=== PATIENT | male | born 1950 | race Caucasian/White ===

== ENCOUNTER 2020-06-21 06:08 | Day surgery (SDC) | payer MEDICARE ==
[2020-06-12 09:26] VITALS: BMI 35.4
[~2020-06-21 06:08] MED LIST: ALPRAZolam 0.25 MG TAB PO PRN; ALPRAZolam 0.5 MG TAB PO PRN; ASPIRIN 325 MG TAB PO STA; ATORVASTATIN 80 MG TAB PO STA; HEPARIN SODIUM,PORCINE 10,000 UNIT in SODIUM CHLORIDE 0.9% 1,000 ML IRRIGATION PRN; HEPARIN SODIUM,PORCINE 2,500 UNIT in SODIUM CHLORIDE 0.9% 250 ML IRRIGATION PRN; NITROGLYCERIN SL TABS 0.4 MG TAB SUBLINGUAL PRN; SODIUM CHLORIDE 0.9% 1,000 ML in EMPTY BAG 1 BAG IV ONE
[2020-06-21] MEDS ORDERED: SODIUM CHLORIDE 0.9% 1,000 ML IV ONE (06:46)
[2020-06-21 07:00] LABS: Glucose,Whole Blood 156 mg/dL (75-99)
[2020-06-21 07:03] LABS: Basophils # (A) 0.1 k/uL (0-0.2); Basophils % (A) 1 %; Eosinophils # (A) 0.3 k/uL (0-0.7); Eosinophils % (A) 5 %; HCT 41.5 % (39.0-53.0); HGB 14.4 gm/dL (13.0-17.5); Lymphocytes # (A) 1.5 k/uL (1.0-4.8); Lymphocytes % (A) 21 %; MCH 32.5 pg (25.0-35.0); MCHC 34.8 g/dL (31.0-37.0); MCV 93.5 fL (80.0-100.0); Mean Platelet Volume 7.1; Monocytes # (A) 0.4 k/uL (0-1.0); Monocytes % (A) 6 %; Neutrophils # (A) 4.6 k/uL (1.3-7.7); Neutrophils % (A) 66 %; Platelet Count 201 k/uL (150-450); RBC 4.44 m/uL (4.30-5.90); RDW 12.6 % (11.5-15.5); WBC 6.9 k/uL (3.8-10.6)
[2020-06-21 07:17] LABS: Calcium 8.9 mg/dL (8.4-10.2); Potassium 4.1 mmol/L (3.5-5.1)
[2020-06-21] MEDS ORDERED: VERAPAMIL 2.5 MG/ML 2 ML AMP ONE (07:41)
[2020-06-21] MEDS ORDERED: LIDOCAINE 1% INJ 10MG/ML (20 ML MDV) ONE (07:41)
[2020-06-21] MEDS ORDERED: HEPARIN SODIUM 1,000 UN/ML (10ML VL) ONE (07:41)
[2020-06-21] MEDS ORDERED: MIDAZOLAM 2 MG/2 ML VIAL IV ONE (07:59)
[2020-06-21] MEDS: MIDAZOLAM 2 MG/2 ML VIAL IV ONE ×2 (08:11→08:16)
[2020-06-21] MEDS ORDERED: fentaNYL (PF) 50 MCG/ML 2 ML AMP ONE (08:14)
[2020-06-21] MEDS ORDERED: LIDOCAINE 1% INJ 10MG/ML (20 ML MDV) SQ ONE (08:15)
[2020-06-21] MEDS: fentaNYL (PF) 50 MCG/ML 2 ML AMP IV ONE ×2 (08:16→09:12)
[2020-06-21] MEDS ORDERED: BIVALIRUDIN BOLUS 250 MG/50 ML IV ONE (08:42)
[2020-06-21] MEDS ORDERED: BIVALIRUDIN 250 MG in SODIUM CHLORIDE 0.9% 50 ML IV ONE (08:44)
[2020-06-21] MEDS ORDERED: IOPAMIDOL-370 125ML BTL INJ ONE (08:46)
[2020-06-21] MEDS: NITROGLYCERIN 1000MCG/10ML SYRINGE INTRACORON ONE ×2 (08:59→09:00)
[2020-06-21] MEDS ORDERED: CLOPIDOGREL 75 MG TAB ONE (09:02)
[2020-06-21] MEDS ORDERED: CLOPIDOGREL 75 MG TAB PO ONE (09:05)
[2020-06-21] MEDS ORDERED: IOPAMIDOL-370 100ML BTL INJ ONE (09:06)
[2020-06-21] MEDS ORDERED: MAG HYDROX/AL HYDROX/SIMETH 30 ML CUP PO PRN (09:12)
[2020-06-21] MEDS ORDERED: RX INFO: IV CONTRAST WAS GIVEN 1 EACH MISC MISCELLANE PRN (09:12)
[2020-06-21] MEDS ORDERED: ZOLPIDEM 5 MG TAB PO PRN (09:12)
[2020-06-21] MEDS ORDERED: ATROPINE SULFATE 0.1 MG/ML 10ML SYRINGE IV PRN (09:12)
[2020-06-21] MEDS ORDERED: NITROGLYCERIN SL TABS 0.4 MG TAB SUBLINGUAL PRN (09:12)
[2020-06-21] MEDS ORDERED: SODIUM CHLORIDE 0.9% 1,000 ML IV SCH (09:15)
[2020-06-21 09:25] LABS: Glucose,Whole Blood 129 mg/dL (75-99)
--- NOTE | 2020-06-21 09:44 | CC ---
CARDIAC CATHETERIZATION REPORT CARDIAC CATHETERIZATION AND PERCUTANEOUS CORONARY INTERVENTION: DATE OF SERVICE: 06/21/2020 PERFORMING PHYSICIAN: Richard Carrizales MD. PROCEDURE PERFORMED: 1. Selective left and right coronary angiogram. 2. HOFF to LAD angiogram. 3. SVG to left circumflex angiogram. 4. SVG to RCA angiogram. 5. Successful stenting of the ramus intermedius coronary artery using 2.75 x 18 mm Xience VIDAL with an excellent angiographic result and reduction of stenosis from 80% to 0%. 6. Right common femoral artery angiogram. INDICATION: This is a 70-year-old gentleman with coronary artery disease and prior coronary artery bypass grafting where he received HOFF to LAD and SVG to ramus intermedius as well as SVG to RCA, was experiencing symptoms of shortness of breath with exertion concerning for severe CAD and angina. He underwent myocardial perfusion imaging stress test and that revealed reversible defect concerning for ischemia. Because of that, a heart catheterization was advised. APPROACH: Right common femoral artery. COMPLICATION: None. LEVEL OF SEDATION: Moderate with sedation length of 30 minutes. PROCEDURE DESCRIPTION: After obtaining an informed consent, the patient was brought to cardiac porcelain enamel laborer. The right common femoral artery was cannulated using micropuncture technique, the micropuncture wire passed easily then I placed a 6-Chadian sheath at the right common femoral artery. I did selective left and right coronary angiogram with JL4 and JR4 catheters. The HOFF to LAD angiogram was performed using the JR4 catheter. The SVG to ramus was performed using LCB. The SVG to RCA was performed using a multi-purpose catheter. After that I did left heart catheterization. After that I did intervene on the ramus intermedius. Please see a separate paragraph for that. SELECTIVE CORONARY ANGIOGRAM: 1. The left main is calcified with mild to moderate disease. It bifurcates into left circumflex and ramus intermedius and left anterior descending artery. 2. The left circumflex: The ostial/proximal left circumflex has a lesion appeared to be in the range of 80% to 90%. 3. The ramus intermedius has a lesion appeared to be in the range of 80%. 4. The LAD is subtotally occluded in the midportion. CORONARY BYPASSES ANGIOGRAM: 1. The HOFF to LAD is patent. 2. The SVG to ramus is occluded. 3. The SVG to RCA is occluded. PCI OF THE RAMUS INTERMEDIUS: Anticoagulation was initiated using Angiomax. After that, I did engage the left main using JL4 guide. I did wire the LAD using a Whisper wire and I did wire the ramus using a run-through wire as well. I did wire the LAD for anchoring purpose because the guide was not well seated in the left main. Balloon angioplasty was achieved using 2.0 x 12 mm balloon. I deployed 2.75 x 18 mm Xience drug-eluting stent where the stent was positioned under fluoroscopy guidance and deployed under 16 atmospheres for 20 seconds with the following angiogram showing excellent angiographic results and the procedure was completed without any complication. HEMODYNAMICS: The LVEDP was about 20 mmHg without significant gradient across the aortic valve. CONCLUSION: 1. Severe triple-vessel coronary artery disease. 2. Patent HOFF to LAD. 3. Occluded SVG to ramus intermedius. 4. Occluded SVG to RCA. 5. Successful stenting of the ramus intermedius as described above. POSTPROCEDURE MANAGEMENT: 1. Dual anti-platelet therapy. 2. Risk factor modifications. 3. Consider PCI of the left circumflex and possibly the RCA if the patient continues to be symptomatic. MMODL / IJN: [id number] /
[2020-06-21] MEDS ORDERED: hydrALAZINE HCL 20 MG/ML 1 ML VIAL IVP STA (17:06)
[2020-06-21] MEDS: DOXAZOSIN 4 MG TAB PO SCH (17:30)
[2020-06-21] MEDS: VERAPAMIL SR 180 MG TABLET.ER PO SCH (17:31)
[2020-06-21] MEDS: glipiZIDE 10 MG TAB PO SCH (17:31)
[2020-06-21] MEDS ORDERED: amLODIPine 5 MG TAB PO STA (18:42)
[2020-06-21] MEDS ORDERED: amLODIPine 5 MG TAB ONE (18:42)
[2020-06-21 20:53] LABS: Glucose,Whole Blood 174 mg/dL (75-99)
[2020-06-21] MEDS ORDERED: INSULIN DETEMIR (LEVEMIR) 100 UNIT/ML SYR SQ SCH (21:00)
[2020-06-21] MEDS ORDERED: ATORVASTATIN 10 MG TAB PO SCH (21:00)
[2020-06-22 04:51] VITALS: PULSE 73; TEMP 98.1
[2020-06-22] MEDS: glipiZIDE 10 MG TAB PO SCH (06:25)
[2020-06-22 06:35] LABS: Glucose,Whole Blood 143 mg/dL (75-99)
[2020-06-22] MEDS ORDERED: ASPIRIN 81 MG PO SCH (09:00)
[2020-06-22] MEDS ORDERED: FUROSEMIDE 40 MG TAB PO SCH (09:00)
[2020-06-22] MEDS ORDERED: lisinopriL 20 MG TAB PO SCH (09:00)
[2020-06-22] MEDS ORDERED: atenoloL 50 MG TAB PO SCH (09:00)
[2020-06-22 09:03] LABS: Basophils # (A) 0.1 k/uL (0-0.2); Basophils % (A) 1 %; Eosinophils # (A) 0.2 k/uL (0-0.7); Eosinophils % (A) 3 %; HCT 39.9 % (39.0-53.0); HGB 13.7 gm/dL (13.0-17.5); Lymphocytes # (A) 1.1 k/uL (1.0-4.8); Lymphocytes % (A) 15 %; MCH 32.4 pg (25.0-35.0); MCHC 34.3 g/dL (31.0-37.0); MCV 94.5 fL (80.0-100.0); Mean Platelet Volume 7.2; Monocytes # (A) 0.4 k/uL (0-1.0); Monocytes % (A) 5 %; Neutrophils # (A) 5.6 k/uL (1.3-7.7); Neutrophils % (A) 75 %; Platelet Count 170 k/uL (150-450); RBC 4.22 m/uL (4.30-5.90); RDW 12.7 % (11.5-15.5); WBC 7.4 k/uL (3.8-10.6)
[2020-06-22] MEDS: VERAPAMIL SR 180 MG TABLET.ER PO SCH (09:03)
[2020-06-22] MEDS: DOXAZOSIN 4 MG TAB PO SCH (09:04)
[2020-06-22 09:13] LABS: African American GFR (CKD) >90 (>60 ml/min/1.73 sqM); Anion Gap 3 mmol/L; Blood Urea Nitrogen 15 mg/dL (9-20); Calcium 8.6 mg/dL (8.4-10.2); Carbon Dioxide 28 mmol/L (22-30); Chloride 108 mmol/L (98-107); Glucose 124 mg/dL (74-99); Non-African American GFR(CKD) >90 (>60 ml/min/1.73 sqM); Potassium 3.7 mmol/L (3.5-5.1); Sodium 139 mmol/L (137-145)
[2020-06-22 10:27] VITALS: BP 163/77; RESP 18
[2020-06-22 12:35] LABS: Glucose,Whole Blood 82 mg/dL (75-99)
== END 2020-06-22 12:44 | disposition home or self-care (01) ==
LOC: CATHCVL 06:08 → 3SCARD 09:05 → CATHCVL 06-22 12:44
PROVIDERS: ATTEND Internal Medicine Interventional Cardiology
DX: I25.110 Atherosclerotic heart disease of native coronary artery with unstable angina pectoris (principal); I25.84 Coronary atherosclerosis due to calcified coronary lesion; I25.710 Atherosclerosis of autologous vein coronary artery bypass graft(s) with unstable angina pectoris; I10 Essential (primary) hypertension; I71.2 Thoracic aortic aneurysm, without rupture; I07.1 Rheumatic tricuspid insufficiency; E78.00 Pure hypercholesterolemia, unspecified; E78.5 Hyperlipidemia, unspecified; E11.9 Type 2 diabetes mellitus without complications; Z82.49 Family history of ischemic heart disease and other diseases of the circulatory system; Z79.82 Long term (current) use of aspirin; Z79.4 Long term (current) use of insulin; Z79.899 Other long term (current) drug therapy
CPT/HCPCS: 93459; 80048 ×2; 85025 ×2; C9600; C1760; C1769 ×5; C1887 ×2; C1725; C1894; C1874; J2250; J0360; J2001; J3010; J0583; Q9967 ×2

== ENCOUNTER → 2021-04-16 | Outpatient (CLI) | payer MEDICARE ==
--- NOTE | 2021-04-16 12:51 | US ---
EXAMINATION TYPE: US kidneys/renal and bladder DATE OF EXAM: 04/16/2021 COMPARISON: NONE CLINICAL HISTORY: R31.9 HEMATURIA. Pt states urinary frequency and urgency EXAM MEASUREMENTS: Right Kidney: 13.1 x 6.9 x 5.6 cm Left Kidney: 12.4 x 6.7 x 6.0 cm Right Kidney: No evidence of hydro, multicystic with largest cyst lower pole= 1.6 x 1.3 x 1.2 cm Left Kidney: No evidence of hydro, multicystic with largest cyst mid/medial= 4.0 x 3.9 x 5.1 cm Bladder: Possible bladder wall diverticula visualized at posterior wall Bilateral Jets seen: Yes There is no evidence for hydronephrosis in either kidney. A diffuse scattered small simple appearing thin-walled cysts bilaterally are present on images saved. The urinary bladder is not greatly distend ed. Bilateral ureteral jets are seen. IMPRESSION: Source of hematuria not identified. If symptoms persist further investigation with CT uro gram would be warranted.
== END | disposition home or self-care (01) ==
LOC: RADUSWWP 12:22
PROVIDERS: ATTEND Urology
DX: R31.9 Hematuria, unspecified (principal); R35.0 Frequency of micturition; R39.15 Urgency of urination
CPT/HCPCS: 76770

== ENCOUNTER 2022-05-08 05:50 | Day surgery (SDC) | payer MEDICARE ==
[2022-05-08] MEDS ORDERED: ATORVASTATIN 80 MG TAB PO STA (05:55)
[2022-05-08] MEDS ORDERED: ASPIRIN 325 MG TAB PO STA (05:55)
[2022-05-08] MEDS ORDERED: ALPRAZolam 0.5 MG TAB PO PRN (05:55)
[2022-05-08] MEDS ORDERED: HEPARIN SODIUM,PORCINE 2,500 UNIT in SODIUM CHLORIDE 0.9% 250 ML IRRIGATION PRN (05:55)
[2022-05-08] MEDS ORDERED: HEPARIN SODIUM,PORCINE 10,000 UNIT in SODIUM CHLORIDE 0.9% 1,000 ML IRRIGATION PRN (05:55)
[2022-05-08] MEDS ORDERED: NITROGLYCERIN SL TABS 0.4 MG TAB SUBLINGUAL PRN ×2 (05:55→08:32)
[2022-05-08] MEDS ORDERED: ALPRAZolam 0.25 MG TAB PO PRN (05:55)
[2022-05-08] MEDS ORDERED: SODIUM CHLORIDE 0.9% 1,000 ML IV ONE (06:10)
[2022-05-08 06:54] LABS: Basophils # (A) 0.1 k/uL (0-0.2); Basophils % (A) 1 %; Eosinophils # (A) 0.3 k/uL (0-0.7); Eosinophils % (A) 4 %; HCT 41.1 % (39.0-53.0); HGB 14.7 gm/dL (13.0-17.5); Lymphocytes # (A) 1.5 k/uL (1.0-4.8); Lymphocytes % (A) 19 %; MCH 33.2 pg (25.0-35.0); MCHC 35.8 g/dL (31.0-37.0); MCV 92.7 fL (80.0-100.0); Mean Platelet Volume 8.2; Monocytes # (A) 0.4 k/uL (0-1.0); Monocytes % (A) 6 %; Neutrophils # (A) 5.3 k/uL (1.3-7.7); Neutrophils % (A) 69 %; Platelet Count 190 k/uL (150-450); RBC 4.43 m/uL (4.30-5.90); WBC 7.6 k/uL (3.8-10.6)
[2022-05-08 07:03] LABS: Calcium 8.1 mg/dL (8.4-10.2); Potassium 3.7 mmol/L (3.5-5.1)
[2022-05-08] MEDS ORDERED: VERAPAMIL 2.5 MG/ML 2 ML AMP ONE (07:17)
[2022-05-08] MEDS ORDERED: MIDAZOLAM 2 MG/2 ML VIAL IV ONE ×4 (07:37→07:46)
[2022-05-08] MEDS ORDERED: LIDOCAINE 1% INJ 10MG/ML (30 ML VIAL-PF) SQ ONE (07:41)
[2022-05-08] MEDS ORDERED: HEPARIN SODIUM 1,000 UN/ML (10ML VL) ONE (08:01)
[2022-05-08] MEDS ORDERED: HEPARIN SODIUM 1,000 UN/ML (10ML VL) IV ONE (08:02)
[2022-05-08] MEDS ORDERED: HYDROmorphone 0.5 MG/0.5 ML SYRINGE IVP ONE (08:05)
[2022-05-08] MEDS ORDERED: IOPAMIDOL-370 100ML BTL INJ ONE ×2 (08:11→08:31)
[2022-05-08] MEDS ORDERED: NITROGLYCERIN 1000MCG/10ML SYRINGE INTRACORON ONE (08:25)
[2022-05-08] MEDS ORDERED: CLOPIDOGREL 75 MG TAB ONE (08:26)
[2022-05-08] MEDS ORDERED: CLOPIDOGREL 75 MG TAB PO ONE (08:28)
[2022-05-08] MEDS ORDERED: MAG HYDROX/AL HYDROX/SIMETH 30 ML CUP PO PRN (08:32)
[2022-05-08] MEDS ORDERED: ATROPINE SULFATE 0.1 MG/ML 10ML SYRINGE IV PRN (08:32)
[2022-05-08] MEDS ORDERED: ZOLPIDEM 5 MG TAB PO PRN (08:32)
[2022-05-08] MEDS ORDERED: RX INFO: IV CONTRAST WAS GIVEN 1 EACH MISC MISCELLANE PRN (08:32)
--- NOTE | 2022-05-08 08:38 | P.PCN ---
Date of Procedure: 05/08/22 Operative Findings: CARDIAC CATHETERIZATION AND PERCUTANEOUS CORONARY INTERVENTION PERFORMING PHYSICIAN: Richard Carrizales MD, [facility] PROCEDURE PERFORMED: 1. Selective right and left coronary angiogram 2. Left heart catheterization 3. Successful stenting of ostial LCx using 2.75 x 12 Xience VIDAL which with an excellent angiographic results 4. HOFF to LAD angiogram, SVG to LCx angiogram, and SVG to RCA angiogram, selective right common femoral artery angiogram INDICATION: This is a 72-year-old gentleman with CAD and prior revascularization was seen in the office as before intermittent episodes of chest discomfort and neck discomfort concerning for angina COMPLICATION: None APPROACH: Right common femoral are LEVEL OF SEDATION: Moderate with the sedation time off 55 minutes PROCEDURE DESCRIPTION: After obtaining an informed consent the patient was brought to the cardiac laboratory equipment installer. The right common femoral artery was cannulated using micropuncture technique, the micropuncture wire passed easily then I placed a 6-Emirati sheath at the right common femoral artery. I did selective right and left coronary angiogram using JR4 and JL L 4.5 catheters. I did also SVG to RCA and SVG to LCx and HOFF into LAD angiogram using JR4 catheter. Left heart catheterization was performed using the JR4 catheter which cross the aortic valve then I did pullback across the valve. After that I did intervene on the LCx these see the dictation. The procedure was completed without any complication SELECTIVE CORONARY ANGIOGRAM: The right coronary artery: Large caliber vessel and a dominant vessel. The RCA is chronically occluded. The SVG to RCA is occluded as well Left main: Left main has mild disease. Bifurcates into an LCx and LAD The left circumflex: Large caliber vessel. Its and on dominant vessel. The LCx proximally gives rise into a large OM branch which appeared to be stented and the stent is patent. The ostial LCx has a tight lesion appeared to be in the range of 99.9%. The SVG to LCx is occluded. The left anterior descending artery: Large caliber vessel. The LAD is occluded in the proximal to midportion. The HOFF to LAD is patent. HEMODYNAMICS: The LVEDP was 16 mmHg was no significant gradient across aortic valve PCI OF THE LCx: Anticoagulation was initiated using heparin with continuous ACT monitoring. Subsequently I did engage the left main using a CLS 4 guiding catheter. I did where the LCx using a whisper wire. Balloon angioplasty was achieved using initially 2.0 underwent 2.5 mm balloon. After that I did deploy 2.75 x 12 mm stent where the stent was positioned under fluoroscopy guidance and deployed under 20 ld for 20 seconds. The following angiogram showed good angiographic r esults and the procedure was completed without any complications CONCLUSION: Severe triple-vessel coronary artery disease Patent HOFF to LAD Occluded SVG to LCx Occluded SVG to RCA Patent stent in the first obtuse marginal branch Successful stenting of the ostial LCx Normal left-sided filling pressure POSTPROCEDURE MANAGEMENT: #1 dual antiplatelet therapy with dual antiplatelet therapy including aspirin and Plavix for at least 6 month and preferably twelve-month #2 aggressive cholesterol control #3 follow-up with the patient
[2022-05-08] MEDS ORDERED: atenoloL 50 MG TAB PO SCH (09:00)
[2022-05-08] MEDS ORDERED: SAW PALMETTO 160 MG PO SCH (09:00)
[2022-05-08 09:05] LABS: Glucose,Whole Blood 166 mg/dL (70-110)
[2022-05-08] MEDS: SODIUM CHLORIDE 0.9% 1,000 ML in EMPTY BAG 1 BAG IV SCH ×19 (11:27→16:07)
[2022-05-08] MEDS: DOXAZOSIN 4 MG TAB PO SCH ×2 (12:10→21:09)
[2022-05-08] MEDS: ASCORBIC ACID 500 MG TAB PO SCH (12:11)
[2022-05-08] MEDS: VERAPAMIL SR 180 MG TABLET.ER PO SCH ×2 (12:11→21:09)
[2022-05-08] MEDS: lisinopriL 20 MG TAB PO SCH (12:11)
[2022-05-08] MEDS: FUROSEMIDE 40 MG TAB PO SCH (12:11)
[2022-05-08] MEDS: INDOMETHACIN 25 MG CAP PO SCH (12:11)
[2022-05-08 12:39] LABS: Glucose,Whole Blood 212 mg/dL (70-110)
[2022-05-08 15:06] VITALS: BMI 36.6
[2022-05-08 17:34] LABS: Glucose,Whole Blood 219 mg/dL (70-110)
[2022-05-08] MEDS: glipiZIDE 10 MG TAB PO SCH (18:16)
[2022-05-08 19:30] VITALS: RESP 16
[2022-05-08 20:23] LABS: Glucose,Whole Blood 358 mg/dL (70-110)
[2022-05-08] MEDS ORDERED: INSULIN DETEMIR (LEVEMIR) 100 UNIT/ML SYR SQ SCH (21:00)
[2022-05-09 06:15] LABS: Glucose,Whole Blood 128 mg/dL (70-110)
[2022-05-09] MEDS: glipiZIDE 10 MG TAB PO SCH (06:16)
--- NOTE | 2022-05-09 08:01 | P.DS ---
Providers Attending physician: Richard Carrizales Consults: 05/08/22 08:32 Consult Physician Routine Consulting Provider: [facility] Consult Reason/Comments: Post Interventional Patient Do you want consulting provider notified?: Already Contacted Primary care physician: Ed Callaway [facility] Course: The patient is a pleasant 72-year-old gentleman with coronary artery disease with underwent yesterday successful stenting of the left circumflex coronary artery from right groin approach. He was seen this morning. He is asymptomatic and hemodynamically stable. The groin is soft and nontender with no bruises. The patient is going to be discharged home on dual antiplatelet therapy along with high intensity statin and I'll follow-up with the patient in a week in the office Plan - Discharge Summary Discharge Rx Participant: No New Discharge Prescriptions: Continue Aspirin 81 mg PO DAILY Insulin Glargine,Hum.rec.anlog [Lantus Solostar Pen] 50 unit SQ HS Lovastatin [Mevacor] 40 mg PO DAILY lisinopriL 20 mg PO DAILY Terazosin HCl 8 mg PO BID Furosemide [Lasix] 40 mg PO DAILY Verapamil HCl [Verapamil ER] 180 mg PO BID atenoloL [Tenormin] 50 mg PO DAILY Glipizide (Unknown Dose) 10 mg PO BID-W/MEALS Oxybutynin ER [Ditropan Xl] 10 mg PO DAILY Ascorbic Acid [Vitamin C] 500 mg PO DAILY Saw [place] 160 mg PO DAILY Clopidogrel [Plavix] 75 mg PO DAILY Indomethacin [Indocin] 50 mg PO DAILY Discontinued metFORMIN HCL [Glucophage] 1,000 mg PO DAILY Discharge Medication List Aspirin 81 mg PO DAILY 06/12/20 [History] Furosemide [Lasix] 40 mg PO DAILY 06/12/20 [History] Insulin Glargine,Hum.rec.anlog [Lantus Solostar Pen] 50 unit SQ HS 06/12/20 [History] Lovastatin [Mevacor] 40 mg PO DAILY 06/12/20 [History] Terazosin HCl 8 mg PO BID 06/12/20 [History] Verapamil HCl [Verapamil ER] 180 mg PO BID 06/12/20 [History] atenoloL [Tenormin] 50 mg PO DAILY 06/12/20 [History] lisinopriL 20 mg PO DAILY 06/12/20 [History] Glipizide (Unknown Dose) 10 mg PO BID-W/MEALS 06/18/20 [History] Ascorbic Acid [Vitamin C] 500 mg PO DAILY 05/06/22 [History] Indomethacin [Indocin] 50 mg PO DAILY 05/06/22 [History] Oxybutynin ER [Ditropan Xl] 10 mg PO DAILY 05/06/22 [History] Saw [place] 160 mg PO DAILY 05/06/22 [History] Clopidogrel [Plavix] 75 mg PO DAILY 05/08/22 [History] Follow up Appointment(s)/Referral(s): Richard Carrizales MD [STAFF PHYSICIAN] - 1 Week (APPOINTMENT MADE ON May @ 9:30AM) Patient Instructions/Handouts: Moderate Sedation (DC), Heart Catheterization (DC), Angio-Seal (DC) Activity/Diet/Wound Care/Special Instructions: NO METFORMIN FOR 2 DAYS.
[2022-05-09 08:24] VITALS: BP 145/88; PULSE 60; TEMP 97.2
[2022-05-09] MEDS: INDOMETHACIN 25 MG CAP PO SCH (08:30)
[2022-05-09] MEDS: FUROSEMIDE 40 MG TAB PO SCH (08:31)
[2022-05-09] MEDS: ASCORBIC ACID 500 MG TAB PO SCH (08:31)
[2022-05-09] MEDS: VERAPAMIL SR 180 MG TABLET.ER PO SCH (08:31)
[2022-05-09] MEDS: DOXAZOSIN 4 MG TAB PO SCH (08:31)
[2022-05-09] MEDS: lisinopriL 20 MG TAB PO SCH (08:31)
[2022-05-09] MEDS ORDERED: ATORVASTATIN 10 MG TAB PO SCH (09:00)
[2022-05-09] MEDS ORDERED: ASPIRIN 81 MG PO SCH (09:00)
[2022-05-09] MEDS ORDERED: CLOPIDOGREL 75 MG TAB PO SCH (09:00)
== END 2022-05-09 09:05 | disposition home or self-care (01) ==
LOC: CATHCVL 05:50 → 6NMEDSUR 10:39 → CATHCVL 05-09 09:05
PROVIDERS: ATTEND Internal Medicine Interventional Cardiology
DX: I25.810 Atherosclerosis of coronary artery bypass graft(s) without angina pectoris (principal); E11.9 Type 2 diabetes mellitus without complications; I10 Essential (primary) hypertension; E78.5 Hyperlipidemia, unspecified; I71.21 Aneurysm of the ascending aorta, without rupture
CPT/HCPCS: 93459; 80048; 82565; 85025; C1769 ×5; C9600; C1760; C1887 ×2; C1725 ×3; C1894 ×2; C1874; J2250; J2001; J1644; J1170; Q9967